=== PATIENT | female | born 1945 | race Caucasian/White ===

== ENCOUNTER 2021-06-23 22:27 | Emergency (ER) | payer MEDICARE ==
[~2021-06-23] VITALS: Ht 165.1 cm; Wt 79.4 kg
[2021-06-23] MEDS ORDERED: ASPIRIN81 MG PO (22:50)
[2021-06-23] MEDS ORDERED: DROXIA200 MG PO (22:51)
[2021-06-23] MEDS ORDERED: EFFEXOR XR150 MG PO (22:52)
[2021-06-23] MEDS ORDERED: LEVOTHYROXINE137 MC1 (22:53)
== END 2021-06-23 23:35 | disposition home or self-care (01) ==
LOC: ED 22:27
DX: R04.0 Epistaxis (principal); I10 Essential (primary) hypertension; Z79.899 Other long term (current) drug therapy; Z79.82 Long term (current) use of aspirin
CPT/HCPCS: 30903; 99283-25